=== PATIENT | female | born 1950 | race African-American/Black ===

== ENCOUNTER 2019-03-06 23:17 | Inpatient (IN) | payer MEDICARE ==
[2019-03-07] MEDS ORDERED: Maalox 30 mL Cup PO PRN (12:17)
[2019-03-07] MEDS ORDERED: Magnesium Hydroxide (MOM) 30 mL UDC PO PRN (12:17)
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
[2019-03-08] MEDS: Multivitamin Tab PO SCH ×2 (08:10→08:19)
[2019-03-08] MEDS ORDERED: cloNIDine 0.1 mg/24 hr Tdm TD SCH (10:00)
--- NOTE | 2019-03-08 10:00 | General Progress Note ---
Subjective - Review of Systems Service Date: 03/08/19 Subjective: Awake, alert, no acute distress. c/o lower extremity pain. contusion to lower extremities. refuse PO amlodipine. Objective - Physical Exam Vitals and I&O: Vital Signs Temp 97.0 F 03/08/19 06:14 Pulse 69 03/08/19 07:49 Resp 20 03/08/19 06:14 BP 156/74 03/08/19 07:49 Pulse Ox 94 03/08/19 06:14 Intake & Output 03/07/19 03/08/19 03/08/19 18:59 06:59 18:59 Intake Total 240 Balance 240 Weight (lbs) 90.718 kg Intake: Oral 240 Other: # Voids 1 Weight Source Estimated Active Medications: Current Medications Acetaminophen (Tylenol) 650 mg PO Q4HR PRN PRN Reason: Mild Pain / Temp above 100 Stop: 05/06/19 12:16 Last Admin: 03/08/19 06:50 Dose: 650 mg Al Hydrox/Mg Hydrox/Simethicone (Maalox) 30 ml PO Q4HR PRN PRN Reason: GI DISTRESS Stop: 05/06/19 12:16 Amlodipine Besylate (Norvasc) 5 mg PO DAILY [facility] Stop: 05/07/19 08:59 Last Admin: 03/08/19 08:19 Dose: Not Given Ibuprofen (Motrin) 600 mg PO BID [facility] Stop: 05/07/19 16:59 Lorazepam (Ativan) 0.5 mg PO Q4HR PRN; Protocol PRN Reason: Anxiety Stop: 04/06/19 12:16 Magnesium Hydroxide (Milk Of Magnesia) 30 ml PO HS PRN PRN Reason: Constipation Multivitamins/Vitamin C (Theragran) 1 tab PO DAILY [facility] Stop: 05/07/19 08:59 Last Admin: 03/08/19 08:19 Dose: Not Given Zolpidem Tartrate (Ambien) 5 mg PO HS PRN PRN Reason: Insomnia Stop: 05/06/19 12:16 Last Admin: 03/07/19 20:31 Dose: 5 mg General: Alert, Oriented x3, No acute distress HEENT: Atraumatic Neck: Supple Cardiovascular: Regular rate Abdomen: Bowel sounds, Soft Extremities: no Clubbing, no Cyanosis, no Edema Assessment/Plan - Assessment Assessment: psychosis anemia CAD CVA Dementia Depression Hypertension lower leg contusion - Plan Plan: will order labwork. Norvasc for blood pressure control add clonidine PRN labwork to be done. add ibuprofen
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
--- NOTE | 2019-03-09 07:56 | General Progress Note ---
Subjective - Review of Systems Service Date: 03/09/19 Subjective: Awake, alert, no acute distress. c/o lower extremity pain. contusion to lower extremities. refuse PO's. BP elevated T 97.5 P 62 BP 163/82 R 18 Objective - Physical Exam Vitals and I&O: Vital Signs Temp 97.5 F 03/09/19 06:32 Pulse 62 03/09/19 06:32 Resp 18 03/09/19 06:32 BP 163/82 03/09/19 06:32 Pulse Ox 98 03/09/19 06:32 Intake & Output 03/08/19 03/09/19 03/09/19 18:59 06:59 18:59 Intake Total 850 240 Balance 850 240 Intake: Oral 850 240 Other: # Voids 3 2 # Bowel Movements 1 Active Medications: Current Medications Acetaminophen (Tylenol) 650 mg PO Q4HR PRN PRN Reason: Mild Pain / Temp above 100 Stop: 05/06/19 12:16 Last Admin: 03/08/19 06:50 Dose: 650 mg Al Hydrox/Mg Hydrox/Simethicone (Maalox) 30 ml PO Q4HR PRN PRN Reason: GI DISTRESS Stop: 05/06/19 12:16 Amlodipine Besylate (Norvasc) 5 mg PO DAILY [facility] Stop: 05/07/19 08:59 Last Admin: 03/08/19 08:19 Dose: Not Given Ibuprofen (Motrin) 600 mg PO BID [facility] Stop: 05/07/19 16:59 Last Admin: 03/08/19 17:26 Dose: Not Given Lorazepam (Ativan) 0.5 mg PO Q4HR PRN; Protocol PRN Reason: Anxiety Stop: 04/06/19 12:16 Magnesium Hydroxide (Milk Of Magnesia) 30 ml PO HS PRN PRN Reason: Constipation Multivitamins/Vitamin C (Theragran) 1 tab PO DAILY [facility] Stop: 05/07/19 08:59 Last Admin: 03/08/19 08:19 Dose: Not Given Zolpidem Tartrate (Ambien) 5 mg PO HS PRN PRN Reason: Insomnia Stop: 05/06/19 12:16 Last Admin: 03/07/19 20:31 Dose: 5 mg General: Alert, Oriented x3, No acute distress HEENT: Atraumatic Neck: Supple Cardiovascular: Regular rate Abdomen: Bowel sounds, Soft Extremities: no Clubbing, no Cyanosis, no Edema Assessment/Plan - Assessment Assessment: psychosis anemia CAD CVA Dementia Depression Hypertension elevated lower leg contusion - Plan Plan: will order labwork. Catapres patch will titrate to maintain SBP 150 labwork to be done. add ibuprofen
[2019-03-09] MEDS: Multivitamin Tab PO SCH (09:28)
[2019-03-09] MEDS ORDERED: cloNIDine 0.2 mg/24 hr Tdm TD SCH (10:00)
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
--- NOTE | 2019-03-10 07:45 | General Progress Note ---
Subjective - Review of Systems Service Date: 03/10/19 Subjective: Awake, alert, no acute distress. c/o lower extremity pain. contusion to lower extremities. refuse PO's. BP elevated T 97.8 P 65 BP 161/85 R 18 Objective - Physical Exam Vitals and I&O: Vital Signs Temp 97.8 F 03/10/19 06:32 Pulse 65 03/10/19 06:32 Resp 18 03/10/19 06:32 BP 161/85 03/10/19 06:32 Pulse Ox 99 03/10/19 06:32 Intake & Output 03/09/19 03/10/19 03/10/19 18:59 06:59 18:59 Intake Total 950 240 Balance 950 240 Intake: Oral 950 240 Other: # Voids 3 2 # Bowel Movements 1 Active Medications: Current Medications Acetaminophen (Tylenol) 650 mg PO Q4HR PRN PRN Reason: Mild Pain (Scale 1-3) Stop: 05/06/19 12:16 Last Admin: 03/08/19 06:50 Dose: 650 mg Acetaminophen (Tylenol) 650 mg PO Q4HR PRN PRN Reason: TEMP ABOVE 100 Stop: 05/08/19 11:35 Al Hydrox/Mg Hydrox/Simethicone (Maalox) 30 ml PO Q4HR PRN PRN Reason: GI DISTRESS Stop: 05/06/19 12:16 Amlodipine Besylate (Norvasc) 5 mg PO DAILY [facility] Stop: 05/07/19 08:59 Last Admin: 03/09/19 09:28 Dose: Not Given Clonidine HCl (Ntfnmxeg-Cjf-0) 1 patch TD Mo [facility] Stop: 05/08/19 09:59 Last Admin: 03/09/19 11:12 Dose: 1 patch Ibuprofen (Motrin) 600 mg PO BID [facility] Stop: 05/07/19 16:59 Last Admin: 03/09/19 16:23 Dose: Not Given Lorazepam (Ativan) 0.5 mg PO Q4HR PRN; Protocol PRN Reason: Anxiety Stop: 04/06/19 12:16 Magnesium Hydroxide (Milk Of Magnesia) 30 ml PO HS PRN PRN Reason: Constipation Multivitamins/Vitamin C (Theragran) 1 tab PO DAILY [facility] Stop: 05/07/19 08:59 Last Admin: 03/09/19 09:28 Dose: Not Given Quetiapine Fumarate (Seroquel) 50 mg PO HS [facility]; Protocol Stop: 05/08/19 20:59 Last Admin: 03/09/19 21:03 Dose: 50 mg Zolpidem Tartrate (Ambien) 5 mg PO HS PRN PRN Reason: Insomnia Stop: 05/06/19 12:16 Last Admin: 03/07/19 20:31 Dose: 5 mg General: Alert, Oriented x3, No acute distress HEENT: Atraumatic Neck: Supple Cardiovascular: Regular rate Abdomen: Bowel sounds, Soft Extremities: no Clubbing, no Cyanosis, no Edema Assessment/Plan - Assessment Assessment: psychosis anemia CAD CVA Dementia Depression Hypertension elevated lower leg contusion - Plan Plan: will order labwork. Catapres patch will titrate to maintain SBP 150. Amlodipine PO labwork to be done. add ibuprofen
[2019-03-10] MEDS: Multivitamin Tab PO SCH (10:19)
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
--- NOTE | 2019-03-11 07:58 | General Progress Note ---
Subjective - Review of Systems Service Date: 03/11/19 Subjective: Awake, alert, no acute distress. c/o lower extremity pain. contusion to lower extremities. refuse PO's. BP elevated T 97.4 P 59 BP 168/86 R 18 Objective - Physical Exam Vitals and I&O: Vital Signs Temp 97.4 F 03/11/19 06:28 Pulse 59 03/11/19 06:54 Resp 18 03/11/19 06:28 BP 168/86 03/11/19 06:54 Pulse Ox 98 03/11/19 06:28 Intake & Output 03/10/19 03/11/19 03/11/19 18:59 06:59 18:59 Intake Total 800 120 Balance 800 120 Intake: Oral 800 120 Other: # Voids 4 3 # Bowel Movements 1 Active Medications: Current Medications Acetaminophen (Tylenol) 650 mg PO Q4HR PRN PRN Reason: Mild Pain (Scale 1-3) Stop: 05/06/19 12:16 Last Admin: 03/08/19 06:50 Dose: 650 mg Acetaminophen (Tylenol) 650 mg PO Q4HR PRN PRN Reason: TEMP ABOVE 100 Stop: 05/08/19 11:35 Al Hydrox/Mg Hydrox/Simethicone (Maalox) 30 ml PO Q4HR PRN PRN Reason: GI DISTRESS Stop: 05/06/19 12:16 Amlodipine Besylate (Norvasc) 5 mg PO DAILY [facility] Stop: 05/07/19 08:59 Last Admin: 03/10/19 10:56 Dose: Not Given Clonidine HCl ([id number]-Frz-5) 1 patch TD Mo [facility] Stop: 05/08/19 09:59 Last Admin: 03/09/19 11:12 Dose: 1 patch Ibuprofen (Motrin) 600 mg PO BID [facility] Stop: 05/07/19 16:59 Last Admin: 03/10/19 17:50 Dose: Not Given Lorazepam (Ativan) 0.5 mg PO Q4HR PRN; Protocol PRN Reason: Anxiety Stop: 04/06/19 12:16 Magnesium Hydroxide (Milk Of Magnesia) 30 ml PO HS PRN PRN Reason: Constipation Multivitamins/Vitamin C (Theragran) 1 tab PO DAILY [facility] Stop: 05/07/19 08:59 Last Admin: 03/10/19 10:19 Dose: 1 tab Quetiapine Fumarate (Seroquel) 50 mg PO HS [facility]; Protocol Stop: 05/08/19 20:59 Last Admin: 03/10/19 20:27 Dose: Not Given Zolpidem Tartrate (Ambien) 5 mg PO HS PRN PRN Reason: Insomnia Stop: 05/06/19 12:16 Last Admin: 03/07/19 20:31 Dose: 5 mg General: Alert, Oriented x3, No acute distress HEENT: Atraumatic Neck: Supple Cardiovascular: Regular rate Abdomen: Bowel sounds, Soft Extremities: no Clubbing, no Cyanosis, no Edema Assessment/Plan - Assessment Assessment: psychosis anemia CAD CVA Dementia Depression Hypertension elevated lower leg contusion - Plan Plan: will order labwork. Catapres patch will titrate to maintain SBP 150. Clonidine PO q8 PRN labwork to be done. add ibuprofen
[2019-03-11] MEDS: Multivitamin Tab PO SCH (09:34)
[2019-03-11] MEDS: cloNIDine 0.2 mg/24 hr Tdm TD SCH (10:45)
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
[2019-03-12] MEDS: Multivitamin Tab PO SCH (08:38)
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
[2019-03-13] MEDS: Multivitamin Tab PO SCH (13:04)
--- NOTE | 2019-03-13 22:58 | Progress Notes ---
DATE: 03/13/2019 SUBJECTIVE: The patient in the hospital, had been aggressive, seems to be generally calmer, more cooperative, mostly withdrawn, keeps to self. The patient was apparently delusional per the daughter, unclear where she is going to go, cannot live with daughter. Daughter could not care for her. We are trying to find her a place to go, unable to care for her basic needs. Any psychotic symptom seems to be lessening. She is calmer on exam, just unable to care for herself. JOB# [id number]
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
[2019-03-14] MEDS: Multivitamin Tab PO SCH (09:04)
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
[2019-03-15] MEDS: Multivitamin Tab PO SCH (09:03)
--- NOTE | 2019-03-15 12:48 | Progress Notes ---
DATE: 03/15/2019 Today on [id number]-pa-[id number] evaluation, reporting that she does not need medications. She would not take any psychiatric medications. When attempting to validate her medication, she becomes more irritable and then attempts to walk away and leave and demanding to leave the hospital. ASSESSMENT AND PLAN: History of depression with comorbid aggressive behavior with poor insight. We will continue with the current medication regimen. If she continues to refuse ____, she may be a candidate for ____. JOB# [id number]
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
[2019-03-16] MEDS: Multivitamin Tab PO SCH (08:37)
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
[2019-03-17] MEDS: Multivitamin Tab PO SCH (08:30)
--- NOTE | 2019-03-17 09:43 | Progress Notes ---
DATE: 03/17/2019 SUBJECTIVE: The patient in the hospital, seems calm on exam. No agitation. No overt psychotic symptoms. Amenable to placement. AO to name, place, situation. We are trying to get into a fpc. She has been very calm and cooperative on exam, less isolative, keeps to self. PLAN: We will continue to monitor. Currently on a small dose of Depakote for mood regulation. We will monitor closely. Vitals were also noted. JOB# [id number]
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
[2019-03-18] MEDS: Multivitamin Tab PO SCH (09:26)
[2019-03-18] MEDS: cloNIDine 0.2 mg/24 hr Tdm TD SCH (10:35)
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
[2019-03-19] MEDS: Multivitamin Tab PO SCH (09:01)
--- NOTE | 2019-03-19 15:58 | Progress Notes ---
DATE: 03/19/2019 Case was discussed with staff of the patient, reviewed records. The patient continues to have poor insight, continues to be unpredictable, impulsive, demented, confused, depressed. She is sleeping better, eating better. She continues to be unable to participate in a meaningful conversation. No side effects of the medication, no sedation, no nausea. We will continue to work with the patient in group therapy, milieu therapy, and adjust the medication as needed. [facility]# [id number]
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
[2019-03-20] MEDS: Multivitamin Tab PO SCH ×2 (09:21→12:02)
--- NOTE | 2019-03-21 06:08 | Progress Notes ---
DATE: 03/20/2019 SUBJECTIVE: Case was discussed with staff of the patient, reviewed records. The patient has been isolating herself. The staff reports she is being angry, irritable, needing redirection. Continues to have poor insight, unpredictable, impulsive. No side effects with the medication, no sedation, no nausea, no extrapyramidal symptoms. Sleeping better and eating better. Working on discharge plan. I will continue outpatient group therapy, milieu therapy, and adjust medications as needed. JOB# [id number]
--- NOTE | 2019-03-21 08:15 | General Progress Note ---
Subjective - Review of Systems Service Date: 03/21/19 Subjective: Awake, alert, no acute distress. c/o lower extremity pain. contusion to lower extremities. refuse amlodipine, prefers clonidine PO. BP elevated T 97.4 P 57 BP 163/83 R 19 Objective - Physical Exam Vitals and I&O: Vital Signs Temp 97.4 F 03/21/19 06:46 Pulse 57 03/21/19 06:46 Resp 19 03/21/19 06:46 BP 163/83 03/21/19 06:46 Pulse Ox 98 03/21/19 06:46 Intake & Output 03/20/19 03/21/19 03/21/19 18:59 06:59 18:59 Intake Total 1000 240 Balance 1000 240 Intake: Oral 1000 240 Other: # Voids 4 2 # Bowel Movements 1 1 Active Medications: Current Medications Acetaminophen (Tylenol) 650 mg PO Q4HR PRN PRN Reason: Mild Pain (Scale 1-3) Stop: 05/06/19 12:16 Last Admin: 03/12/19 15:57 Dose: 325 mg Acetaminophen (Tylenol) 650 mg PO Q4HR PRN PRN Reason: TEMP ABOVE 100 Stop: 05/08/19 11:35 Al Hydrox/Mg Hydrox/Simethicone (Maalox) 30 ml PO Q4HR PRN PRN Reason: GI DISTRESS Stop: 05/06/19 12:16 Amlodipine Besylate (Norvasc) 10 mg PO DAILY [facility] Stop: 05/14/19 08:59 Last Admin: 03/20/19 11:59 Dose: Not Given Clonidine HCl (Nsaplyhp-Npa-2) 1 patch TD QWED [facility] Stop: 05/10/19 10:59 Last Admin: 03/18/19 10:35 Dose: 1 patch Divalproex Sodium (Depakote Sprinkle) 125 mg PO Q12HR [facility]; Protocol Stop: 05/15/19 20:59 Last Admin: 03/20/19 21:10 Dose: Not Given Donepezil HCl (Aricept) 5 mg PO HS [facility] Stop: 05/17/19 20:59 Last Admin: 03/20/19 21:11 Dose: Not Given Ibuprofen (Motrin) 600 mg PO BID [facility] Stop: 05/07/19 16:59 Last Admin: 03/20/19 16:43 Dose: Not Given Lorazepam (Ativan) 0.5 mg PO Q4HR PRN; Protocol PRN Reason: Anxiety Stop: 04/06/19 12:16 Magnesium Hydroxide (Milk Of Magnesia) 30 ml PO HS PRN PRN Reason: Constipation Multivitamins/Vitamin C (Theragran) 1 tab PO DAILY [facility] Stop: 05/07/19 08:59 Last Admin: 03/20/19 12:02 Dose: Not Given Zolpidem Tartrate (Ambien) 5 mg PO HS PRN PRN Reason: Insomnia Stop: 05/06/19 12:16 Last Admin: 03/12/19 21:38 Dose: 5 mg General: Alert, Oriented x3, No acute distress HEENT: Atraumatic Neck: Supple Cardiovascular: Regular rate Abdomen: Bowel sounds, Soft Extremities: no Clubbing, no Cyanosis, no Edema Assessment/Plan - Assessment Assessment: psychosis anemia CAD CVA Dementia Depression Hypertension stable lower leg contusion - Plan Plan: will order labwork. Clonidine PO q12 and PRN. will reorder Amlodipine 10mg PO daily. continue to monitor BP labwork to be done. add ibuprofen Nutritional Asmnt/Malnutr-PDOC - Dietary Evaluation Malnutrition Findings (Please click <Entered> for more info): Nutritional Asmnt/Malnutrition Start: 03/11/19 11: 23 Text: Status: Complete Freq: Protocol: Document 03/11/19 11:44 MMULBURKE (Rec: 03/11/19 12:28 MMULBURKE AYOUB- [email or web address]) Nutritional Asmnt/Malnutrition Patient General Information Nutritional Screening Low Risk Diagnosis Psychosis Pertinent Medical Hx/Surgical Hx anemia, CAD, CVA, dementia, depression, hypertension, kidney failure, MRSA, PE Subjective Information Per H&P, patient is homeless ( started living with daughter 02/26/19) and was admitted from [facility] due to threatening to throw boiling coffee at her daughter . Per RN, patient refused all her scheduled morning meds. She is tolerating current diet with adequate intake. Current Diet Order/ Nutrition Support Regular Patient / S.O Not Indicated Pertinent Medications maalox, MOM, Theragran Nutritional Hx/Data Height 1.63 m Height (Calculated Centimeters) 162.6 Current Weight (lbs) 90.718 kg Weight (Calculated Kilograms) 90.7 Weight (Calculated Grams) 53361.5 [place] Body Weight 120 % [place] Body Weight 166 Body Mass Index (BMI) 34.3 Recent Weight Change No Weight Status Obese GI Symptoms GI Symptoms None Last BM 03/10 x 1 Difficult in: None Cultural/Ethnic/Anglican Belief none indicated Usual diet at home uknown Skin Integrity/Comment: [place] 19, dryness Current %PO Good (75-100%) Estimated Nutritional Goals BEE in Kcals: Adj wt of IBW Calories/Kcals/Kg 63.6kg Adj BW Kcals Calculated ~3821-0020 kcal/day (25-30 kcal/kg) Protein: Adj wt of IBW Protein g/k-1.2 gm/kg Protein Calculated 65-75 gm/day Fluid: ml ~9631-8686 ml/day (1 ml/kcal) Nutritional Problem No current Nutrition Prob Problem No nutrition diagnosis at this time. Intervention/Recommendation Comments 1. Continue regular diet as tolerated by patient. Expected Outcomes/Goals Expected Outcomes/Goals Oral intake >75% of meals, weight stable or trend toward IBW, nutrition related labs WNL F/U LR 03/18-
[2019-03-21] MEDS: Multivitamin Tab PO SCH ×2 (08:37→09:11)
--- NOTE | 2019-03-21 18:01 | Progress Notes ---
DATE: Case was discussed with staff of the patient, reviewed records, the patient has been refusing her medication for the past few days as the patient has been here for 14 days. Apparently, she was taking it before and recently she has stopped taking it. The patient continues to stays in her room. She is abrupt in her answers, withdrawn. The staff is also working on placement for her, daughter decides she can take care of her. I am not sure if she needs to be reached. She is not acting out, in anyway dangerous; however, we will try to prompt her to take her medication, she would not tell me why she is not taking her medication or give me any reason. She is on Aricept and Depakote. We will continue the patient in group therapy, milieu therapy, adjust medication as needed. JOB# [id number]
[2019-03-22] MEDS: Multivitamin Tab PO SCH ×2 (08:56→13:52)
--- NOTE | 2019-03-22 10:30 | General Progress Note ---
Subjective - Review of Systems Service Date: 03/22/19 Subjective: Awake, alert, no acute distress. c/o lower extremity pain. contusion to lower extremities. refuse amlodipine, prefers clonidine PO. BP elevated T 97.2 P 53 BP 158/85 R 18 Objective - Physical Exam Vitals and I&O: Vital Signs Temp 97.2 F 03/22/19 06:53 Pulse 56 03/22/19 08:58 Resp 20 03/22/19 07:42 BP 158/83 03/22/19 08:58 Pulse Ox 99 03/22/19 06:53 Intake & Output 03/21/19 03/22/19 03/22/19 18:59 06:59 18:59 Intake Total 1320 240 Balance 1320 240 Intake: Oral 1080 240 Other 240 Other: # Voids 4 1 # Bowel Movements 1 Active Medications: Current Medications Acetaminophen (Tylenol) 650 mg PO Q4HR PRN PRN Reason: Mild Pain (Scale 1-3) Stop: 05/06/19 12:16 Last Admin: 03/12/19 15:57 Dose: 325 mg Acetaminophen (Tylenol) 650 mg PO Q4HR PRN PRN Reason: TEMP ABOVE 100 Stop: 05/08/19 11:35 Al Hydrox/Mg Hydrox/Simethicone (Maalox) 30 ml PO Q4HR PRN PRN Reason: GI DISTRESS Stop: 05/06/19 12:16 Amlodipine Besylate (Norvasc) 10 mg PO DAILY [facility] Stop: 05/14/19 08:59 Last Admin: 03/22/19 08:58 Dose: 10 mg Clonidine HCl (Gkjkxhud-Fgw-5) 1 patch TD QWED [facility] Stop: 05/10/19 10:59 Last Admin: 03/18/19 10:35 Dose: 1 patch Divalproex Sodium (Depakote Sprinkle) 125 mg PO Q12HR [facility]; Protocol Stop: 05/15/19 20:59 Last Admin: 03/22/19 08:55 Dose: 125 mg Donepezil HCl (Aricept) 5 mg PO HS [facility] Stop: 05/17/19 20:59 Last Admin: 03/21/19 20:59 Dose: Not Given Ibuprofen (Motrin) 600 mg PO BID [facility] Stop: 05/07/19 16:59 Last Admin: 03/22/19 08:55 Dose: 600 mg Lorazepam (Ativan) 0.5 mg PO Q4HR PRN; Protocol PRN Reason: Anxiety Stop: 04/06/19 12:16 Magnesium Hydroxide (Milk Of Magnesia) 30 ml PO HS PRN PRN Reason: Constipation Multivitamins/Vitamin C (Theragran) 1 tab PO DAILY [facility] Stop: 05/07/19 08:59 Last Admin: 03/22/19 08:56 Dose: 1 tab Zolpidem Tartrate (Ambien) 5 mg PO HS PRN PRN Reason: Insomnia Stop: 05/06/19 12:16 Last Admin: 03/12/19 21:38 Dose: 5 mg General: Alert, Oriented x3, No acute distress HEENT: Atraumatic Neck: Supple Cardiovascular: Regular rate Abdomen: Bowel sounds, Soft Extremities: no Clubbing, no Cyanosis, no Edema Assessment/Plan - Assessment Assessment: psychosis anemia CAD CVA Dementia Depression Hypertension stable lower leg contusion - Plan Plan: will order labwork. Clonidine PO q12 and PRN. will reorder Amlodipine 10mg PO daily. continue to monitor BP labwork to be done. add ibuprofen Nutritional Asmnt/Malnutr-PDOC - Dietary Evaluation Malnutrition Findings (Please click <Entered> for more info): Nutritional Asmnt/Malnutrition Start: 03/11/19 11: 23 Text: Status: Complete Freq: Protocol: Document 03/11/19 11:44 MMULBURKE (Rec: 03/11/19 12:28 MMULBURKE AYOUB- [email or web address]) Nutritional Asmnt/Malnutrition Patient General Information Nutritional Screening Low Risk Diagnosis Psychosis Pertinent Medical Hx/Surgical Hx anemia, CAD, CVA, dementia, depression, hypertension, kidney failure, MRSA, PE Subjective Information Per H&P, patient is homeless ( started living with daughter 02/26/19) and was admitted from [facility] due to threatening to throw boiling coffee at her daughter . Per RN, patient refused all her scheduled morning meds. She is tolerating current diet with adequate intake. Current Diet Order/ Nutrition Support Regular Patient / S.O Not Indicated Pertinent Medications maalox, MOM, Theragran Nutritional Hx/Data Height 1.63 m Height (Calculated Centimeters) 162.6 Current Weight (lbs) 90.718 kg Weight (Calculated Kilograms) 90.7 Weight (Calculated Grams) 00783.5 [place] Body Weight 120 % [place] Body Weight 166 Body Mass Index (BMI) 34.3 Recent Weight Change No Weight Status Obese GI Symptoms GI Symptoms None Last BM 03/10 x 1 Difficult in: None Cultural/Ethnic/Taoism Belief none indicated Usual diet at home uknown Skin Integrity/Comment: [place] 19, dryness Current %PO Good (75-100%) Estimated Nutritional Goals BEE in Kcals: Adj wt of IBW Calories/Kcals/Kg 63.6kg Adj BW Kcals Calculated ~4807-0179 kcal/day (25-30 kcal/kg) Protein: Adj wt of IBW Protein g/k-1.2 gm/kg Protein Calculated 65-75 gm/day Fluid: ml ~7514-2828 ml/day (1 ml/kcal) Nutritional Problem No current Nutrition Prob Problem No nutrition diagnosis at this time. Intervention/Recommendation Comments 1. Continue regular diet as tolerated by patient. Expected Outcomes/Goals Expected Outcomes/Goals Oral intake >75% of meals, weight stable or trend toward IBW, nutrition related labs WNL F/U LR 03/18-
--- NOTE | 2019-03-22 13:08 | Progress Notes ---
DATE: 03/22/2019 Case was discussed with staff of the patient, reviewed records. The patient is isolating stays in her room. Continues to be unable to make safe plan for self-care. Continues to be unpredictable, impulsive, and irritable. Continues to be withdrawn, abrupt in her answers. The staff is working on placement. Her daughter cannot take care of her anymore. We are working on discharge plan. She refuses medication and sometimes. She was taking it before, she is only on Depakote and Aricept. We will continue outpatient group therapy, milieu therapy, adjust the medication as needed. JOB# [id number] MIGEL
--- NOTE | 2019-03-23 08:19 | General Progress Note ---
Subjective - Review of Systems Service Date: 03/23/19 Subjective: Awake, alert, no acute distress. c/o lower extremity pain. contusion to lower extremities. refuse amlodipine, prefers clonidine PO. BP elevated T 97.5 P 51 BP 178/79 R 18 Objective - Physical Exam Vitals and I&O: Vital Signs Temp 97.5 F 03/23/19 06:54 Pulse 51 03/23/19 06:54 Resp 18 03/23/19 06:54 BP 178/79 03/23/19 06:54 Pulse Ox 100 03/23/19 06:54 Intake & Output 03/22/19 03/23/19 03/23/19 18:59 06:59 18:59 Intake Total 950 160 Balance 950 160 Intake: Oral 950 160 Other: # Voids 3 # Bowel Movements 1 0 Active Medications: Current Medications Acetaminophen (Tylenol) 650 mg PO Q4HR PRN PRN Reason: Mild Pain (Scale 1-3) Stop: 05/06/19 12:16 Last Admin: 03/12/19 15:57 Dose: 325 mg Acetaminophen (Tylenol) 650 mg PO Q4HR PRN PRN Reason: TEMP ABOVE 100 Stop: 05/08/19 11:35 Al Hydrox/Mg Hydrox/Simethicone (Maalox) 30 ml PO Q4HR PRN PRN Reason: GI DISTRESS Stop: 05/06/19 12:16 Amlodipine Besylate (Norvasc) 10 mg PO DAILY [facility] Stop: 05/14/19 08:59 Last Admin: 03/22/19 08:40 Dose: Not Given Clonidine HCl (Knxxbnbg-Ihw-0) 1 patch TD QWED [facility] Stop: 05/10/19 10:59 Last Admin: 03/18/19 10:35 Dose: 1 patch Divalproex Sodium (Depakote Sprinkle) 125 mg PO Q12HR [facility]; Protocol Stop: 05/15/19 20:59 Last Admin: 03/22/19 21:25 Dose: Not Given Donepezil HCl (Aricept) 5 mg PO HS [facility] Stop: 05/17/19 20:59 Last Admin: 03/22/19 21:25 Dose: Not Given Ibuprofen (Motrin) 600 mg PO BID [facility] Stop: 05/07/19 16:59 Last Admin: 01/19/20 18:59 Dose: Not Given Lorazepam (Ativan) 0.5 mg PO Q4HR PRN; Protocol PRN Reason: Anxiety Stop: 04/06/19 12:16 Magnesium Hydroxide (Milk Of Magnesia) 30 ml PO HS PRN PRN Reason: Constipation Multivitamins/Vitamin C (Theragran) 1 tab PO DAILY [facility] Stop: 05/07/19 08:59 Last Admin: 03/22/19 13:52 Dose: Not Given Zolpidem Tartrate (Ambien) 5 mg PO HS PRN PRN Reason: Insomnia Stop: 05/06/19 12:16 Last Admin: 03/12/19 21:38 Dose: 5 mg General: Alert, Oriented x3, No acute distress HEENT: Atraumatic Neck: Supple Cardiovascular: Regular rate Abdomen: Bowel sounds, Soft Extremities: no Clubbing, no Cyanosis, no Edema Assessment/Plan - Assessment Assessment: psychosis anemia CAD CVA Dementia Depression Hypertension stable lower leg contusion - Plan Plan: will order labwork. Clonidine PO q12 and PRN. will reorder Amlodipine 10mg PO daily. continue to monitor BP labwork to be done. add ibuprofen Nutritional Asmnt/Malnutr-PDOC - Dietary Evaluation Malnutrition Findings (Please click <Entered> for more info): Nutritional Asmnt/Malnutrition Start: 03/11/19 11: 23 Text: Status: Complete Freq: Protocol: Document 03/11/19 11:44 MMULHERN (Rec: 03/11/19 12:28 MMULBURKE AYOUB- FNS1) Nutritional Asmnt/Malnutrition Patient General Information Nutritional Screening Low Risk Diagnosis Psychosis Pertinent Medical Hx/Surgical Hx anemia, CAD, CVA, dementia, depression, hypertension, kidney failure, MRSA, PE Subjective Information Per H&P, patient is homeless ( started living with daughter 02/26/19) and was admitted from [facility] due to threatening to throw boiling coffee at her daughter . Per RN, patient refused all her scheduled morning meds. She is tolerating current diet with adequate intake. Current Diet Order/ Nutrition Support Regular Patient / S.O Not Indicated Pertinent Medications maalox, MOM, Theragran Nutritional Hx/Data Height 1.63 m Height (Calculated Centimeters) 162.6 Current Weight (lbs) 90.718 kg Weight (Calculated Kilograms) 90.7 Weight (Calculated Grams) 66497.5 [place] Body Weight 120 % [place] Body Weight 166 Body Mass Index (BMI) 34.3 Recent Weight Change No Weight Status Obese GI Symptoms GI Symptoms None Last BM 03/10 x 1 Difficult in: None Cultural/Ethnic/Caodaism Belief none indicated Usual diet at home uknown Skin Integrity/Comment: [place] 19, dryness Current %PO Good (75-100%) Estimated Nutritional Goals BEE in Kcals: Adj wt of IBW Calories/Kcals/Kg 63.6kg Adj BW Kcals Calculated ~6625-9532 kcal/day (25-30 kcal/kg) Protein: Adj wt of IBW Protein g/k-1.2 gm/kg Protein Calculated 65-75 gm/day Fluid: ml ~1351-2565 ml/day (1 ml/kcal) Nutritional Problem No current Nutrition Prob Problem No nutrition diagnosis at this time. Intervention/Recommendation Comments 1. Continue regular diet as tolerated by patient. Expected Outcomes/Goals Expected Outcomes/Goals Oral intake >75% of meals, weight stable or trend toward IBW, nutrition related labs WNL F/U LR 03/18-
--- NOTE | 2019-03-23 14:25 | Progress Notes ---
DATE: 03/23/2019 Case was discussed with staff of the patient, reviewed records. The patient reports she is taking her medication. The patient continues to isolate herself. Continues to have poor insight, unable to make safe plan for self-care. She is only on Depakote 125 mg twice a day and Aricept 5 mg at bedtime. No side effects with the medication, no sedation, no nausea. We will continue the patient in group therapy, milieu therapy, and adjust medication as needed. JOB# [id number]
[2019-03-23] MEDS: Multivitamin Tab PO SCH (17:27)
--- NOTE | 2019-03-24 08:00 | General Progress Note ---
Subjective - Review of Systems Service Date: 03/24/19 Subjective: Awake, alert, no acute distress. c/o lower extremity pain. contusion to lower extremities. refuse amlodipine, prefers clonidine PO. BP elevated T 97.6 P 58 BP 154/75 R 19 Objective - Physical Exam Vitals and I&O: Vital Signs Temp 97.6 F 03/24/19 06:42 Pulse 58 03/24/19 06:42 Resp 19 03/24/19 06:42 BP 154/75 03/24/19 06:42 Pulse Ox 96 03/24/19 06:42 Intake & Output 03/23/19 03/24/19 03/24/19 18:59 06:59 18:59 Intake Total 1500 240 Balance 1500 240 Intake: Oral 1500 240 Other: # Voids 3 3 # Bowel Movements 0 0 Active Medications: Current Medications Acetaminophen (Tylenol) 650 mg PO Q4HR PRN PRN Reason: Mild Pain (Scale 1-3) Stop: 05/06/19 12:16 Last Admin: 03/12/19 15:57 Dose: 325 mg Acetaminophen (Tylenol) 650 mg PO Q4HR PRN PRN Reason: TEMP ABOVE 100 Stop: 05/08/19 11:35 Al Hydrox/Mg Hydrox/Simethicone (Maalox) 30 ml PO Q4HR PRN PRN Reason: GI DISTRESS Stop: 05/06/19 12:16 Amlodipine Besylate (Norvasc) 10 mg PO DAILY [facility] Stop: 05/14/19 08:59 Last Admin: 03/23/19 17:25 Dose: Not Given Clonidine HCl (Twjbifkz-Fzi-6) 1 patch TD QWED [facility] Stop: 05/10/19 10:59 Last Admin: 03/18/19 10:35 Dose: 1 patch Divalproex Sodium (Depakote Sprinkle) 125 mg PO Q12HR [facility]; Protocol Stop: 05/15/19 20:59 Last Admin: 03/23/19 21:02 Dose: Not Given Donepezil HCl (Aricept) 5 mg PO HS [facility] Stop: 05/17/19 20:59 Last Admin: 03/23/19 21:02 Dose: Not Given Ibuprofen (Motrin) 600 mg PO BID [facility] Stop: 05/07/19 16:59 Last Admin: 03/23/19 17:29 Dose: Not Given Lorazepam (Ativan) 0.5 mg PO Q4HR PRN; Protocol PRN Reason: Anxiety Stop: 04/06/19 12:16 Magnesium Hydroxide (Milk Of Magnesia) 30 ml PO HS PRN PRN Reason: Constipation Multivitamins/Vitamin C (Theragran) 1 tab PO DAILY [facility] Stop: 05/07/19 08:59 Last Admin: 03/23/19 17:27 Dose: Not Given Zolpidem Tartrate (Ambien) 5 mg PO HS PRN PRN Reason: Insomnia Stop: 05/06/19 12:16 Last Admin: 03/12/19 21:38 Dose: 5 mg General: Alert, Oriented x3, No acute distress HEENT: Atraumatic Neck: Supple Cardiovascular: Regular rate Abdomen: Bowel sounds, Soft Extremities: no Clubbing, no Cyanosis, no Edema Assessment/Plan - Assessment Assessment: psychosis anemia CAD CVA Dementia Depression Hypertension stable lower leg contusion - Plan Plan: will order labwork. Clonidine PO q12 and PRN. will reorder Amlodipine 10mg PO daily. continue to monitor BP labwork to be done. add ibuprofen Nutritional Asmnt/Malnutr-PDOC - Dietary Evaluation Malnutrition Findings (Please click <Entered> for more info): Nutritional Asmnt/Malnutrition Start: 03/11/19 11: 23 Text: Status: Complete Freq: Protocol: Document 03/11/19 11:44 MMULBURKE (Rec: 03/11/19 12:28 MMULBURKE AYOUB- FNS1) Nutritional Asmnt/Malnutrition Patient General Information Nutritional Screening Low Risk Diagnosis Psychosis Pertinent Medical Hx/Surgical Hx anemia, CAD, CVA, dementia, depression, hypertension, kidney failure, MRSA, PE Subjective Information Per H&P, patient is homeless ( started living with daughter 02/26/19) and was admitted from [facility] due to threatening to throw boiling coffee at her daughter . Per RN, patient refused all her scheduled morning meds. She is tolerating current diet with adequate intake. Current Diet Order/ Nutrition Support Regular Patient / S.O Not Indicated Pertinent Medications maalox, MOM, Theragran Nutritional Hx/Data Height 1.63 m Height (Calculated Centimeters) 162.6 Current Weight (lbs) 90.718 kg Weight (Calculated Kilograms) 90.7 Weight (Calculated Grams) 31795.5 [place] Body Weight 120 % [place] Body Weight 166 Body Mass Index (BMI) 34.3 Recent Weight Change No Weight Status Obese GI Symptoms GI Symptoms None Last BM 03/10 x 1 Difficult in: None Cultural/Ethnic/Moravian Belief none indicated Usual diet at home uknown Skin Integrity/Comment: [place] 19, dryness Current %PO Good (75-100%) Estimated Nutritional Goals BEE in Kcals: Adj wt of IBW Calories/Kcals/Kg 63.6kg Adj BW Kcals Calculated ~8725-8013 kcal/day (25-30 kcal/kg) Protein: Adj wt of IBW Protein g/k-1.2 gm/kg Protein Calculated 65-75 gm/day Fluid: ml ~1246-9783 ml/day (1 ml/kcal) Nutritional Problem No current Nutrition Prob Problem No nutrition diagnosis at this time. Intervention/Recommendation Comments 1. Continue regular diet as tolerated by patient. Expected Outcomes/Goals Expected Outcomes/Goals Oral intake >75% of meals, weight stable or trend toward IBW, nutrition related labs WNL F/U LR 03/18-
[2019-03-24] MEDS: Multivitamin Tab PO SCH (08:53)
--- NOTE | 2019-03-24 16:20 | Discharge Summary ---
DATE OF DISCHARGE: 03/24/2019 HISTORY OF PRESENT ILLNESS: A 69-year-old female brought into the hospital, was apparently threatening to throw hot water at family member, the patient noting that she did not actually do this time. There was some tension escalation. It does seem seem that things were escalating at home. The patient was alluding to erratic sleep, poor appetite. PAST PSYCHIATRIC HISTORY: The patient alluding to history of depression in the past. FAMILY HISTORY: Noncontributory. MEDICATIONS: Noted. PROVISIONAL DIAGNOSES: Mood, unspecified; psychosis, unspecified. MEDICAL: Please see full H and P. HOSPITAL COURSE: After initial assessment, the patient was started on medications. She did not feel that she needs medications. She was mostly concerned about side effects and stating that she has been on medications before and they did not help. She states that the incident with the family member was argumentative and defiant and she did not get physical at all. Over the course of treatment, the patient did improve. She was calm, cooperative, mostly just kept to self in her room but was not causing any problems or yelling, no screaming overt psychotic symptoms. She was not aggressive. CONDITION UPON DISCHARGE: Improved. The patient is generally calm, more cooperative, answering questions appropriately, grossly linear. Thought processes, no SI, no HI, no overt psychotic symptoms, better impulse control. PROVISIONAL DIAGNOSES: Mood, unspecified. MEDICAL HISTORY: Please see full H and P. PROGNOSIS: The patient follows up with outpatient mental health services, remains compliant with treatment. Prognosis will improve, otherwise guarded. [facility]# [id number]
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
[2019-03-25] MEDS: Multivitamin Tab PO SCH ×2 (08:10→09:09)
[2019-03-25] MEDS: cloNIDine 0.2 mg/24 hr Tdm TD SCH (11:40)
--- NOTE | 2019-03-25 21:53 | Progress Notes ---
DATE: 03/25/2019 SUBJECTIVE: The patient was to have been discharged yesterday, but there was no bed availability. OBJECTIVE: The patient on exam is calm, cooperative. No overnight events, linear. No SI, no HI, no intent and plan. No overt psychotic symptoms. PLAN: We will discharge today. JOB# [id number]
== END 2019-03-25 15:30 | DRG 885 ==
LOC: GERO 03-07 09:25
PROVIDERS: ADMIT Psychiatry & Neurology Psychiatry; ATTEND Psychiatry & Neurology Psychiatry
DX: F39 Unspecified mood [affective] disorder (principal); F03.90 Unspecified dementia, unspecified severity, without behavioral disturbance, psychotic disturbance, mood disturbance, and anxiety; F29 Unspecified psychosis not due to a substance or known physiological condition; D64.9 Anemia, unspecified; I25.10 Atherosclerotic heart disease of native coronary artery without angina pectoris; F32.9 Major depressive disorder, single episode, unspecified; I10 Essential (primary) hypertension; Z86.73 Personal history of transient ischemic attack (TIA), and cerebral infarction without residual deficits
CPT/HCPCS: 83036-90; Z7610